=== PATIENT | male | born 1940 | race Caucasian/White ===

== ENCOUNTER 2017-09-30 11:19 | Outpatient (CLI) | payer MEDICARE, OTHER ==
--- NOTE | 2017-09-30 12:50 | XRAY Report ---
THREE-VIEW LUMBAR SPINE: 09/30/2017 CLINICAL INDICATION: Kyphosis, scoliosis, stenotic symptoms. FINDINGS: AP, lateral, coned-down views of the lumbar spine demonstrate [id number] degenerat matthew disc and facet disease, with degenerative dextroscoliosis of the thoracolumbar juncture. There i s no evidence of compression fracture. Retrolisthesis of L2 on L3 by approximately 1.5 cm is noted. 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 NO EVIDENCE OF COMPRESSION FRACTURE. JOB #: [id number] EXT JOB #:[id number]
--- NOTE | 2017-09-30 12:51 | XRAY Report ---
THREE VIEW CERVICAL SPINE: 09/30/2017 CLINICAL INDICATION: Neck pain. FINDINGS: AP, lateral, and odontoid views of the cervical spine demonstrate moderate degenerative di sk and facet disease, with mild anterolisthesis of C4 on C5, due to facet arthropathy. There is no ev idence of fracture. The prevertebral soft tissues are unremarkable. IMPRESSION: MODERATE DEGENERATIVE CHANGES, WITH MILD ANTEROLISTHESIS OF C4 ON C5. JOB #: [id number] EXT JOB #:[id number]
== END 2017-09-30 11:20 | disposition home or self-care (01) ==
LOC: DI 11:19
PROVIDERS: ATTEND Internal Medicine
DX: M50.30 Other cervical disc degeneration, unspecified cervical region (principal); M47.892 Other spondylosis, cervical region; M43.12 Spondylolisthesis, cervical region; M51.36 Other intervertebral disc degeneration, lumbar region; M47.896 Other spondylosis, lumbar region; M43.16 Spondylolisthesis, lumbar region; M41.56 Other secondary scoliosis, lumbar region
CPT/HCPCS: 72040; 72100

== ENCOUNTER 2019-05-10 10:02 | Outpatient (CLI) | payer MEDICARE, OTHER | END 2019-05-10 10:03 | disposition home or self-care (01) | LOC: DI 10:02 | PROVIDERS: ATTEND Specialist | DX: G20 Parkinson's disease (principal) | CPT/HCPCS: 93306 ==

== ENCOUNTER 2020-08-20 07:45 | Emergency (ER) | payer MEDICARE, OTHER ==
[2020-08-20] MEDS ORDERED: SODIUM CHLORIDE 0.9% 1,000 ML IV STA (08:03)
[2020-08-20] MEDS ORDERED: LORazepam 2 MG/ML VIAL IVP STA (08:17)
--- NOTE | 2020-08-20 08:20 | ED Physician Documentation ---
PD HPI DYSPNEA - Stated complaint Stated Complaint: SOA - Chief complaint Chief Complaint: Resp - History obtained from History obtained from: Patient, Family - Additional information Additional information: Patient comes emergency department complaining of a feeling of shortness of breath since about 2:00 this morning. Patient states he has a history of Parkinson's disease and has been having these episodes on and off since March. He states that nobody is really given him a specific reason that he feels short of breath sometimes, but that it usually goes away on its own within a certain amount of time. However, the patient and decided to come here because the symptoms do not seem to be resolving in the usual amount of time. Patient states that he has not had anything unusual otherwise during this episode, and that it feels like other episodes he has had before. No cough or fever. No chest pain. The patient states that he just feels that he needs to keep breathing fast. The patient has not been vomiting recently. No dysuria. No sick contacts. No other complaints at this time. He does not have any history of lung disease. He has never been a smoker. Review of Systems Ten Systems: 10 systems reviewed and negative Constitutional: reports: Reviewed and negative Eyes: reports: Reviewed and negative Ears: reports: Reviewed and negative Nose: reports: Reviewed and negative Throat: reports: Reviewed and negative Cardiac: reports: Reviewed and negative Respiratory: reports: Dyspnea GI: reports: Reviewed and negative : reports: Reviewed and negative Skin: reports: Reviewed and negative Musculoskeletal: reports: Reviewed and negative Neurologic: reports: Reviewed and negative Psychiatric: reports: Reviewed and negative Endocrine: reports: Reviewed and negative Immunocompromised: reports: Reviewed and negative PD PAST MEDICAL HISTORY - Present Medications Home Medications: Ambulatory Orders Medication Instructions Recorded Confirmed Alprazolam [Xanax Xr] 0.5 mg PO DAILY PRN #15 tab.er.24h 08/20/20 - Allergies Allergies/Adverse Reactions: Allergies Allergy/AdvReac Type Severity Reaction Status Date / Time No Known Drug Allergies Allergy Verified 08/20/20 07:55 PD ED PE NORMAL - Vitals Vital signs reviewed: Yes - General General: Alert and oriented X 3, Well developed/nourished, Other (Patient appears slightly anxious but otherwise in no apparent distress. His respirations are nonlabored.) - HEENT HEENT: Atraumatic, PERRL, EOMI, Moist mucous membranes - Neck Neck: Supple, no meningeal sign - Cardiac Cardiac: RRR, No murmur - Respiratory Respiratory: Clear bilaterally, Other (Patient is noted to have rapid shallow respirations, but can converse in full sentences without difficulty. He appears slightly anxious. No laboring of respirations. Lungs are clear.) - Abdomen Abdomen: Soft, Non tender, Non distended - Back Back: No CVA TTP - Derm Derm: Normal color, Warm and dry, No rash - Extremities Extremities: No deformity, No edema, No calf tenderness / cord - Neuro Neuro: Alert and oriented X 3, Other (Fine tremor noted in extremities and at TMJ. No specific comparative motor deficits between extremities.) - Psych Psych: Other (anxious) Results - Vitals Vitals: Vital Signs - 24 hr 08/20/20 08/20/20 10:07 10:21 Temperature 36.3 C L Heart Rate 96 84 Respiratory 23 24 Rate Blood Pressure 157/87 H 143/82 H O2 Saturation 100 100 Oxygen O2 Source Room air - EKG (time done) 0836 Rate: Rate (enter#) (85) Rhythm: NSR [place]: Normal Intervals: RBBB QRS: Normal Ischemia: Normal ST segments, Non specific changes Compare to prior EKG: Old EKG unavailable Computer interpretation: Agree with computer - Labs Labs: Laboratory Tests 08/20/20 08/20/20 08/20/20 08:12 08:12 08:12 WBC 7.6 RBC 3.55 L Hgb 11.1 L Hct 34.8 L MCV 98.0 H MCH 31.3 H MCHC 31.9 L RDW 13.2 Plt Count 237 MPV 9.4 Neut # (Auto) 5.6 Lymph # (Auto) 1.3 L Lake # (Auto) 0.6 Eos # (Auto) 0.1 Baso # (Auto) 0.1 Absolute Nucleated RBC 0.00 Nucleated RBC % 0.0 PT 12.2 INR 1.1 Sodium 142 Potassium 3.8 Chloride 103 Carbon Dioxide 29 Anion Gap 10.0 BUN 35 H Creatinine 1.0 Estimated GFR (MDRD) 72 L Glucose 112 H Calcium 9.3 Total Bilirubin 0.9 AST 18 ALT < 10 L Alkaline Phosphatase 52 Troponin I High Sens B-Natriuretic Peptide Total Protein 6.5 L Albumin 3.8 Globulin 2.7 Albumin/Globulin Ratio 1.4 Lipase 36 08/20/20 08/20/20 08:12 08:12 WBC RBC Hgb Hct MCV MCH MCHC RDW Plt Count MPV Neut # (Auto) Lymph # (Auto) Lake # (Auto) Eos # (Auto) Baso # (Auto) Absolute Nucleated RBC Nucleated RBC % PT INR Sodium Potassium Chloride Carbon Dioxide Anion Gap BUN Creatinine Estimated GFR (MDRD) Glucose Calcium Total Bilirubin AST ALT Alkaline Phosphatase Troponin I High Sens 5.3 B-Natriuretic Peptide 20 Total Protein Albumin Globulin Albumin/Globulin Ratio Lipase - Rads (name of study) CXR Radiology: Final report received, EMP read indepedently, See rad report (neg) PD MEDICAL DECISION MAKING - ED course Complexity details: reviewed results, re-evaluated patient, considered di fferential, d/w patient, d/w family ED course: The patient was given a liter of point and normal saline half a milligram of Ativan. I noted that he had clear lungs, though shallow rapid respirations. Despite the respiratory rate, however, the patient was able to converse easily and appeared more anxious than anything. Additionally, his oxygen saturation was 100% on room air. He was very slightly tachycardic. He was worked up with labs, EKG, and chest x-ray. Work-up was unremarkable. Pt was found to be doing much better after Ativan. He was stable for d/c home. I have given him a prescription for Xanax, and instructed pt and to f/u with PCP to determine a good long-term plan for management of pt's anxiety. Departure - Departure Disposition: Home, Self Care Clinical Impression: Anxiety Dyspnea Qualifiers: Dyspnea type: unspecified Qualified Code(s): R06.00 - Dyspnea, unspecified Condition: Stable Instructions: Anxiety Body Response, ED Dyspnea Shortness of Breath Prescriptions: Alprazolam [Xanax Xr] 0.5 mg PO DAILY PRN #15 tab.er.24h PRN Reason: Anxiety Comments: Your labs, EKG, and chest x-ray look good. No emergent cause of your shortness of breath is been found. The most likely explanation at this point is anxiety, for which you have been treated in the emergency department today. Your oxygen has been excellent and your lungs were clear. You would most likely benefit from a low-dose of anxiety medicine at home, which has been prescribed today. Please follow-up with your primary care physician to discuss a good long-term plan for management of this. Discharge Date/Time: 08/20/20 10:23
[2020-08-20 08:21] LABS: BASOPHILS # (AUTO) 0.1 10^3/uL (0.0-0.1); BASOPHILS % (AUTO) 0.9 %; EOSINOPHILS # (AUTO) 0.1 10^3/uL (0.0-0.7); EOSINOPHILS % (AUTO) 0.9 %; HGB - HEMOGLOBIN 11.1 g/dL (14.0-18.0); LYMPHOCYTES # (AUTO) 1.3 10^3/uL (1.5-3.5); LYMPHOCYTES % (AUTO) 16.6 %; MEAN CORPUSCULAR HEMOGLOBIN 31.3 pg (27.0-31.0); MEAN CORPUSCULAR HGB CONC 31.9 g/dL (32.0-36.0); MEAN PLATELET VOLUME 9.4 fL (7.4-11.4); MONOCYTES # (AUTO) 0.6 10^3/uL (0.0-1.0); MONOCYTES % (AUTO) 8.3 %; NEUTROPHILS # (AUTO) 5.6 10^3/uL (1.5-6.6); PLT - PLATELET COUNT 237 10^3/uL (130-450); RED BLOOD COUNT 3.55 10^6/uL (4.70-6.10); RED CELL DISTRIBUTION WIDTH 13.2 % (12.0-15.0); WHITE BLOOD COUNT 7.6 x10^3/uL (4.8-10.8)
[2020-08-20 08:30] LABS: INR 1.1 (0.8-1.2); PT - PROTHROMBIN TIME 12.2 secs (9.9-12.6)
[2020-08-20 08:35] LABS: ALBUMIN 3.8 g/dL (3.2-5.5); ALBUMIN/GLOBULIN RATIO 1.4 (1.0-2.2); ALKALINE PHOSPHATASE 52 IU/L (42-121); ALT ALANINE AMINOTRANSFERASE < 10 IU/L (10-60); AST ASPARTATE AMINOTRANSFERASE 18 IU/L (10-42); BILIRUBIN,TOTAL 0.9 mg/dL (0.2-1.0); BUN - BLOOD UREA NITROGEN 35 mg/dL (6-20); CALCIUM 9.3 mg/dL (8.5-10.3); CARBON DIOXIDE - CO2 29 mmol/L (21-32); CHLORIDE 103 mmol/L (101-111); GLUCOSE 112 mg/dL (70-100); LIPASE 36 U/L (22-51); SODIUM 142 mmol/L (135-145); TOTAL PROTEIN 6.5 g/dL (6.7-8.2)
--- NOTE | 2020-08-20 08:55 | XRAY Report ---
PROCEDURE: Chest 1 View X-Ray INDICATIONS: Chest Pain TECHNIQUE: One view of the chest was acquired. COMPARISON: None FINDINGS: Surgical changes and devices: None. Lungs and pleura: No pleural effusions or pneumothorax. Lungs are clear. Lungs are hyperinflated segura ggesting COPD. Mediastinum: Mediastinal contours appear normal. Heart size is normal. Bones and chest wall: No suspicious bony lesions. Overlying soft tissues appear unremarkable. IMPRESSION: No acute cardiopulmonary disease process. Reviewed by: Theodora Luna MD, PhD on 08/20/2020 8:53 AM PDT Approved by: Theodora Luna MD, PhD on 08/20/2020 8:53 AM PDT Station ID: [id number]
[2020-08-20] MEDS ORDERED: METOPROLOL TARTRATE 50 MG TABLET PO STA (10:04)
[2020-08-20 10:22] VITALS: BP 143/82
== END 2020-08-20 10:23 | disposition home or self-care (01) ==
LOC: ED 07:45
DX: F41.9 Anxiety disorder, unspecified (principal); R06.02 Shortness of breath; R00.0 Tachycardia, unspecified; I45.10 Unspecified right bundle-branch block; G20 Parkinson's disease
CPT/HCPCS: 36415; 71045; 80053; 83690; 83880; 84484; 85025; 85610; 93005; 96374; 99284; 99285; J2060; 82009; 82803

== ENCOUNTER 2020-09-06 10:59 | Outpatient (CLI) | payer MEDICARE, OTHER ==
[2020-09-06] MEDS ORDERED: IOVERSOL 320 50 ML VIAL ONE (11:22)
[2020-09-06] MEDS ORDERED: IOVERSOL 320 100 ML VIAL IVP ONE ×2 (11:22→16:46)
--- NOTE | 2020-09-06 13:52 | CT Report ---
PROCEDURE: Abdomen/Pelvis W INDICATIONS: WEIGHT LOSS CONTRAST: IV CONTRAST: Optiray 320 ml: 100 PO CONTRAST: Optiray 320 ml50 TECHNIQUE: After the administration of intravenous contrast, 5 mm thick sections acquired from the diaphragms to the symphysis. 5 mm thick coronal and sagittal reformats were acquired. For radiation dose reducti on, the following was used: automated exposure control, adjustment of mA and/or kV according to yenifer ent size. COMPARISON: None. FINDINGS: Image quality: Excellent. ABDOMEN: Lung bases: Lung bases are clear. Heart size is normal. Solid organs: Liver and spleen are normal in size and enhancement. Gallbladder is normal. Biliary system is non dilated. Pancreas enhances normally. No adrenal nodules. Kidneys demonstrate normal size and enhancement, without hydronephrosis. Peritoneum and bowel: There is a very large volume of formed stool throughout the colon. Severe and extensive colonic diverticulosis. Orally administered contrast has progressed only to the level of th e distal ileum with no opacification of the large bowel. These factors combine to provide a limited e valuation of the large bowel. No abnormally dilated loops of small bowel. No pericolonic or mesenteri c inflammatory changes. Nodes and vessels: No retroperitoneal or mesenteric adenopathy by size criteria. Aorta and inferior vena cava are normal in size. Miscellaneous: No ventral hernias. PELVIS: Genitourinary: Bladder wall thickness is normal. Miscellaneous: Soft tissue density in the right inguinal canal is nonspecific. This could represent a n undescended testicle or potentially a trapped trap/loculated hydrocele. Scrotal and inguinal ultras ound I recommended to further evaluate. Bones: No suspicious bony lesions. No vertebral body compression fractures. IMPRESSION: No oral contrast within the large bowel, which combines with large volume of dense formed stool and s evere diverticulosis Limited evaluation of the large bowel. Colonoscopy would be recommended unless r ecently performed. Nonspecific soft tissue density in the right inguinal canal with adjacent vascular structure. This co uld represent an undescended testicle although there are other differential considerations. Scrotal a nd right inguinal ultrasound are both recommended. Reviewed by: Brandon James MD on 09/06/2020 1:51 PM PDT Approved by: Brandon James MD on 09/06/2020 1:51 PM PDT Station ID: [id number]
--- NOTE | 2020-09-06 14:17 | CT Report ---
PROCEDURE: CHEST W INDICATIONS: WEIGHT LOSS CONTRAST: IV CONTRAST: Optiray 320 ml: 100 PO CONTRAST: Optiray 320 ml50 TECHNIQUE: After the administration of intravenous contrast, 5 mm thick sections acquired from the pulmonary api yaron to the posterior costophrenic angles. 7 mm thick coronal MIP reformats were acquired. For radia tion dose reduction, the following was used: automated exposure control, adjustment of mA and/or kV according to patient size. COMPARISON: None. FINDINGS: Image quality: Excellent. Lungs and pleura: No acute air space opacities. Mild dependent atelectasis in posterior aspect of bi lateral lung bases are seen. No pleural effusions or pneumothorax. Central and peripheral airways ar e patent and normal in caliber. Mediastinum: Heart size is normal. No pericardial effusion. No mediastinal or hilar adenopathy by size criteria. Thoracic aorta and central pulmonary arteries are normal in size. Esophagus is claudio l in caliber. No hiatal hernia. Bones and chest wall: No suspicious bony lesions. No vertebral body compression fractures. Degener ative disc disease throughout mid to lower thoracic spine and visualized upper lumbar spine is seen. No axillary or supraclavicular adenopathy by size criteria. Thyroid gland is within normal limits. Abdomen: Visualized portion of liver, pancreas, gallbladder and bilateral kidneys show no gross abnor mality. Well-circumscribed hypodensity involving superior aspect of spleen measures 2.4 x 2.1 cm in s ize is seen and may represent splenic cyst. IMPRESSION: 1. Mild bibasilar dependent atelectasis. Bilateral lungs are otherwise clear. Airway is patent. 2. No mediastinal or hilar lymphadenopathy. Reviewed by: Remberto Conner MD on 09/06/2020 1:16 PM AKDT Approved by: Remberto Conner MD on 09/06/2020 1:16 PM AKDT Station ID: [id number]
[2020-09-06] MEDS ORDERED: IOVERSOL 320 50 ML VIAL PO ONE (16:45)
== END 2020-09-06 11:00 | disposition home or self-care (01) ==
LOC: DI 10:59
PROVIDERS: ATTEND Psychiatry & Neurology Neurology
DX: J98.11 Atelectasis (principal); K57.30 Diverticulosis of large intestine without perforation or abscess without bleeding; R93.89 Abnormal findings on diagnostic imaging of other specified body structures
CPT/HCPCS: 71260; 74177; Q9967